=== PATIENT | female | born 1955 | race Asian ===

== ENCOUNTER 2016-11-28 07:17 | Emergency (ER) | payer OTHER ==
[~2016-11-28] VITALS: Ht 160 cm; Wt 68.9 kg
[2016-11-28 07:20] VITALS: TEMP 98.9
[2016-11-28] MEDS ORDERED: GUAIFENESIN200 MG PO (07:45)
[2016-11-28] MEDS ORDERED: AMOX875T8 PO (07:46)
[2016-11-28 08:17] LABS: PLATELET COUNT 291 K/uL (152-353)
[2016-11-28 08:23] LABS: POTASSIUM 3.7 mmol/L (3.6-5.2); SODIUM 135 mmol/L (136-145)
[2016-11-28 09:39] VITALS: BP 144/73
== END 2016-11-28 09:55 | disposition home or self-care (01) ==
LOC: ED 07:17
PROVIDERS: Emergency Medicine
DX: J98.01 Acute bronchospasm (principal); J30.9 Allergic rhinitis, unspecified; J32.9 Chronic sinusitis, unspecified
CPT/HCPCS: 36415; 36600; 80053; 82805; 83880; 85027; 96374; 99284; J2930

== ENCOUNTER 2018-03-25 09:32 | Outpatient (CLI) | payer OTHER ==
[~2018-03-25 09:32] MED LIST: AMOX875T8 PO; GUAIFENESIN200 MG PO
== END 2018-03-25 23:19 | disposition home or self-care (01) ==
LOC: MAMMO 09:32
DX: Z12.31 Encounter for screening mammogram for malignant neoplasm of breast (principal)

== ENCOUNTER 2019-05-19 11:40 | Outpatient (CLI) | payer OTHER | END 2019-05-19 20:39 | disposition home or self-care (01) | LOC: MAMMO 11:40 | DX: Z12.31 Encounter for screening mammogram for malignant neoplasm of breast (principal) ==

== ENCOUNTER 2020-11-16 10:41 | Emergency (ER) | payer OTHER ==
[~2020-11-16] VITALS: Ht 160 cm; Wt 71.2 kg
[2020-11-16 10:46] VITALS: BP 174/97; TEMP 97.1
== END 2020-11-16 10:57 | disposition home or self-care (01) ==
LOC: ED 10:41
DX: M25.511 Pain in right shoulder (principal)
CPT/HCPCS: 99281

== ENCOUNTER 2020-11-16 20:03 | Emergency (ER) | payer OTHER ==
[~2020-11-16] VITALS: Ht 160 cm; Wt 71.2 kg
[2020-11-16 21:25] VITALS: BP 154/74; TEMP 98
== END 2020-11-16 21:25 | disposition home or self-care (01) ==
LOC: ED 20:03
DX: S40.011A Contusion of right shoulder, initial encounter (principal); W18.09XA Striking against other object with subsequent fall, initial encounter; Y93.E3 Activity, vacuuming; Y92.89 Other specified places as the place of occurrence of the external cause
CPT/HCPCS: 96372; 99282; 99283; J1885

== ENCOUNTER 2020-11-19 12:13 | Emergency (ER) | payer OTHER ==
[~2020-11-19] VITALS: Ht 160 cm; Wt 71.2 kg
[2020-11-19 12:18] VITALS: BP 167/111; TEMP 98.7
== END 2020-11-19 14:06 | disposition home or self-care (01) ==
LOC: ED 12:13
DX: J20.9 Acute bronchitis, unspecified (principal)
CPT/HCPCS: 94664; 99283

== ENCOUNTER 2021-05-17 13:27 | Outpatient (CLI) | payer OTHER | END 2021-05-17 21:04 | disposition home or self-care (01) | LOC: MAMMO 13:27 | PROVIDERS: ATTEND Nurse Practitioner Family | DX: Z12.31 Encounter for screening mammogram for malignant neoplasm of breast (principal) ==

== ENCOUNTER 2022-05-16 09:58 | Outpatient (CLI) | payer OTHER | END 2022-05-16 19:30 | disposition home or self-care (01) | LOC: MAMMO 09:58 | PROVIDERS: ATTEND Nurse Practitioner Family | DX: Z12.31 Encounter for screening mammogram for malignant neoplasm of breast (principal) ==